=== PATIENT | female | born 1950 | race Caucasian/White ===

== ENCOUNTER → 2017-09-25 | Outpatient (CLI) | payer MEDICARE, OTHER ==
[~2017-09-25] MED LIST: ASPI81CH PO; ATOR10 PO; CHOL10002; LEVSOD125 PO; LOSA25 PO; MEGARED OMEGA-1 EAC1; METO50ER PO; NYST100SU MT
== END | disposition home or self-care (01) ==
LOC: LAB EV 14:30
DX: N39.0 Urinary tract infection, site not specified (principal)
CPT/HCPCS: 87086

== ENCOUNTER → 2018-01-14 | Outpatient (CLI) | payer MEDICARE, OTHER | LOC: LAB EV 15:43 → LAB SHORT 15:43 | DX: N39.0 Urinary tract infection, site not specified (principal) | CPT/HCPCS: 87077; 87086; 87186 ==

== ENCOUNTER → 2019-02-27 | Outpatient (CLI) | payer MEDICARE, OTHER | END | disposition home or self-care (01) | LOC: LAB EV 19:23 → LAB SHORT 19:23 | DX: N39.0 Urinary tract infection, site not specified (principal) | CPT/HCPCS: 87077; 87086; 87186 ==

== ENCOUNTER 2021-09-09 12:11 | Day surgery (SDC) | payer MEDICARE, OTHER ==
[~2021-09-09] VITALS: Ht 165.1 cm; Wt 77.3 kg
[2021-09-09] MEDS ORDERED: PRAV20 (12:52)
[2021-09-09] MEDS ORDERED: PROLIA60 MG/1 ML (12:53)
--- NOTE | 2021-09-09 13:03 | NUR ---
09/09/21 1303 Kelsey Allen FIRST ATTEMPT MISSED BY REHAN IN THE RIGHT HAND. SECOND ATTEMPT SUCCESSFUL IN RIGHT HAND BY ASHLY
== END 2021-09-09 15:00 | disposition home or self-care (01) ==
LOC: ORSCSDS 12:11
PROVIDERS: Internal Medicine Gastroenterology
PROC: 0DBL8ZX Excision of Transverse Colon, Via Natural or Artificial Opening Endoscopic, Diagnostic (ICD-10-PCS; principal; 2021-09-09 13:30)
PROC: 0DBK8ZX Excision of Ascending Colon, Via Natural or Artificial Opening Endoscopic, Diagnostic (ICD-10-PCS; principal; 2021-09-09 13:30)
DX: Z12.11 Encounter for screening for malignant neoplasm of colon (principal); Z86.010 Personal history of colon polyps; K57.30 Diverticulosis of large intestine without perforation or abscess without bleeding; I10 Essential (primary) hypertension; K64.8 Other hemorrhoids; Z83.71 Family history of colonic polyps; Z79.82 Long term (current) use of aspirin; Z79.899 Other long term (current) drug therapy
CPT/HCPCS: 88305; J2704; J7120

== ENCOUNTER 2024-10-10 10:44 | Day surgery (SDC) | payer MEDICARE, OTHER ==
[~2024-10-10] VITALS: Ht 165.1 cm; Wt 73.9 kg
[~2024-10-10 10:44] MED LIST changes: +Lactated Ringer's 1,000 ML IV ONE; +PRAV20; +PROLIA60 MG/1 ML; +propofoL 50 ML IV ONE
[2024-10-10] MEDS ORDERED: EDARBI80 MG (11:17)
[2024-10-10] MEDS ORDERED: MERIBIN5 MG (11:18)
[2024-10-10] MEDS ORDERED: ASCO500 (11:19)
[2024-10-10] MEDS ORDERED: PROBIOTIC1 EA13 (11:28)
[2024-10-10] MEDS ORDERED: CALCIUM 600 MG1 EA18 (11:28)
[2024-10-10] MEDS ORDERED: FISH OIL 1,0001 EA10 (11:28)
[2024-10-10] MEDS ORDERED: BENADRYL25 MG (11:29)
[2024-10-10] MEDS ORDERED: LORA10ER (11:29)
[2024-10-10] MEDS ORDERED: Lactated Ringer's 1,000 ML IV ONE (12:26)
--- NOTE | 2024-10-10 13:01 | NUR ---
10/10/24 1301 Carl Vargas PT UPDATED REGARDING DELAY.
[2024-10-10 18:32] VITALS: BP 143/63
== END 2024-10-10 14:10 | disposition home or self-care (01) ==
LOC: ORSCSDS 10:44
PROVIDERS: Internal Medicine Gastroenterology
PROC: 0DBM8ZX Excision of Descending Colon, Via Natural or Artificial Opening Endoscopic, Diagnostic (ICD-10-PCS; principal; 2024-10-10 12:00)
DX: Z12.11 Encounter for screening for malignant neoplasm of colon (principal); Z86.0101 Personal history of adenomatous and serrated colon polyps; Z83.719 Family history of colon polyps, unspecified; K57.30 Diverticulosis of large intestine without perforation or abscess without bleeding; K64.4 Residual hemorrhoidal skin tags; Z79.82 Long term (current) use of aspirin; Z79.899 Other long term (current) drug therapy
CPT/HCPCS: 88305; J2704; J7120